=== PATIENT | male | born 1970 | race Caucasian/White ===

== ENCOUNTER 2018-04-29 22:35 | Emergency (ER) | payer OTHER ==
[~2018-04-29] VITALS: Ht 175.3 cm; Wt 97.7 kg
[2018-04-29 22:54] VITALS: Ht 175.3 cm; Wt 97.7 kg
[2018-04-29] MEDS ORDERED: SULFAMETHOXAZOL1 TA3 PO (22:55)
[2018-04-29 23:19] LABS: BASOPHILS 0.4 % (0-2); EOSINOPHILS 1.3 % (0-7); HEMATOCRIT 40.1 % (42.0-54.0); HEMOGLOBIN 13.7 g/dL (13.5-17.5); IMMATURE GRANULOCYTES 0.4 % (0-5); LYMPHOCYTES 19.5 % (15-50); MCH 32.5 pg (26.0-34.0); MCHC 34.2 g/dL (31.0-37.0); MCV 95.2 fL (80.0-100.0); MEAN PLATELET VOLUME 10.1 fL (7.4-10.4); MONOCYTES 6.5 % (2-11); NEUTROPHILS 71.9 % (40-80); PLATELET COUNT 312 10x3/uL (130-400); RBC 4.21 10x6/uL (4.20-6.10); RDW 13.1 % (11.5-14.5); WBC 7.9 10x3/uL (4.8-10.8)
[2018-04-29 23:30] LABS: APPEARANCE CLEAR (CLEAR); BILIRUBIN NEGATIVE (NEGATIVE); COLOR YELLOW (YELLOW); GLUCOSE NEGATIVE (NEGATIVE); KETONE NEGATIVE (NEGATIVE); NITRITE NEGATIVE (NEGATIVE); PROTEIN TRACE mg/dL (NEGATIVE); UROBILINOGEN NORMAL (NORMAL)
[2018-04-29 23:34] LABS: BACTERIA FEW /hpf (NONE SEEN); CALCIUM OXALATE CRYSTALS 0-5 /hpf (NONE SEEN); EPITHELIAL CELLS 0-5 /hpf (0-5); MUCUS >1+ /lpf (NONE SEEN); RED CELLS - URINE 0-5 /hpf (0-5); WHITE CELLS - URINE 0-5 /hpf (0-5)
[2018-04-29 23:37] LABS: ALBUMIN 3.6 g/dL (3.4-5.0); ALKALINE PHOSPHATASE 79 U/L (46-116); ALT (SGPT) 33 U/L (10-68); BILIRUBIN - TOTAL 0.39 mg/dL (0.2-1.3); CALC OSMOLALITY 290 mosm/kg (275-300); CALCIUM 8.9 mg/dL (8.5-10.1); CARBON DIOXIDE 23.8 mmol/L (21.0-32.0); CHLORIDE - SERUM 107 mmol/L (98-107); CREATININE - SERUM 1.2 mg/dL (0.6-1.3); GLUCOSE 137 mg/dL (74-106); POTASSIUM - SERUM 3.7 mmol/L (3.5-5.1); PROTEIN - SERUM 7.4 g/dL (6.4-8.2); SODIUM 144 mmol/L (136-145); UREA NITROGEN 17 mg/dL (7-18); eGFR NON AFRICAN AMERICAN 69 mL/min (90-120)
[2018-04-29 23:44] LABS: AMYLASE - SERUM 22 U/L (25-115); LIPASE 106 U/L (73-393); TROPONIN-I < 0.017 ng/mL (0.000-0.060)
[2018-04-30] MEDS ORDERED: FLOMAX0.4 MG PO (00:41)
[2018-04-30] MEDS ORDERED: HYDROCODON-ACE1 EAC7 PO (00:50)
[2018-04-30 02:01] VITALS: BP 135/74
== END 2018-04-30 02:02 | disposition home or self-care (01) ==
LOC: D.ER 22:35
PROVIDERS: Family Medicine
DX: N20.0 Calculus of kidney (principal); R11.2 Nausea with vomiting, unspecified

== ENCOUNTER 2019-11-15 18:29 | Emergency (ER) | payer OTHER ==
[~2019-11-15] VITALS: Ht 175.3 cm; Wt 100.0 kg
[~2019-11-15 18:29] MED LIST: FLOMAX0.4 MG PO; HYDROCODON-ACE1 EAC7 PO; SULFAMETHOXAZOL1 TA3 PO
[2019-11-15 18:39] VITALS: Ht 175.3 cm; Wt 100.0 kg
[2019-11-15] MEDS ORDERED: LIDODERM 5 %1 PATCH TRANSDERM (18:41)
[2019-11-15] MEDS ORDERED: MOBIC7.5 MG PO (18:42)
[2019-11-15 19:38] LABS: BASOPHILS 0.3 % (0-2); EOSINOPHILS 2.9 % (0-7); HEMATOCRIT 39.6 % (42.0-54.0); HEMOGLOBIN 13.6 g/dL (13.5-17.5); IMMATURE GRANULOCYTES 0.4 % (0-5); LYMPHOCYTES 23.1 % (15-50); MCH 31.7 pg (26.0-34.0); MCHC 34.3 g/dL (31.0-37.0); MCV 92.3 fL (80.0-100.0); MEAN PLATELET VOLUME 10.1 fL (7.4-10.4); MONOCYTES 11.5 % (2-11); NEUTROPHILS 61.8 % (40-80); RBC 4.29 10x6/uL (4.20-6.10); WBC 7.3 10x3/uL (4.8-10.8)
[2019-11-15 19:39] LABS: PLATELET COUNT 245 10x3/uL (130-400)
[2019-11-15 19:45] LABS: APTT 29.5 SECONDS (22.8-39.4); INR 1.06 (0.85-1.17); PROTIME 13.7 SECONDS (11.6-15.0)
[2019-11-15 19:49] LABS: BILIRUBIN NEGATIVE (NEGATIVE); KETONE NEGATIVE (NEGATIVE); NITRITE NEGATIVE (NEGATIVE); UROBILINOGEN NORMAL (NORMAL)
[2019-11-15 19:50] LABS: CALC OSMOLALITY 278 mosm/kg (275-300); CALCIUM 8.6 mg/dL (8.5-10.1); CARBON DIOXIDE 23.9 mmol/L (21.0-32.0); CHLORIDE - SERUM 105 mmol/L (98-107); CREATININE - SERUM 0.8 mg/dL (0.6-1.3); GLUCOSE 97 mg/dL (74-106); POTASSIUM - SERUM 3.6 mmol/L (3.5-5.1); SODIUM 140 mmol/L (136-145); UREA NITROGEN 12 mg/dL (7-18); eGFR NON AFRICAN AMERICAN > 90 mL/min (90-120)
[2019-11-15 19:51] LABS: UDS - AMPHET NEGATIVE QUAL (NEGATIVE); UDS - BARB NEGATIVE QUAL (NEGATIVE); UDS - BENZO NEGATIVE QUAL (NEGATIVE); UDS - COCAINE NEGATIVE QUAL (NEGATIVE); UDS - OPIATE NEGATIVE QUAL (NEGATIVE); UDS - PCP NEGATIVE QUAL (NEGATIVE); UDS - THC NEGATIVE QUAL (NEGATIVE)
[2019-11-15 20:25] LABS: ALBUMIN 3.5 g/dL (3.4-5.0); ALKALINE PHOSPHATASE 81 U/L (30-120); ALT (SGPT) 24 U/L (10-68); BILIRUBIN - TOTAL 0.52 mg/dL (0.2-1.3); CKMB 0.7 U/L (0.0-3.6); CREATINE KINASE 99 UL (21-232); LIPASE 123 U/L (73-393); MAGNESIUM - SERUM 1.7 mg/dL (1.8-2.4); PROTEIN - SERUM 7.1 g/dL (6.4-8.2); THYROID STIMULATING HORMONE 3.74 uIU/mL (0.36-3.74)
[2019-11-15 20:26] LABS: TROPONIN-I < 0.017 ng/mL (0.000-0.060)
[2019-11-15 21:51] VITALS: BP 148/89
== END 2019-11-15 21:51 | disposition home or self-care (01) ==
LOC: D.ER 18:29
PROVIDERS: Family Medicine
DX: R53.83 Other fatigue (principal); R51 Headache; R53.1 Weakness; R11.0 Nausea